=== PATIENT | male | born 1985 | race Caucasian/White ===

== ENCOUNTER 2019-02-26 16:16 | Emergency (ER) | payer OTHER | END 2019-02-26 18:28 | disposition other institution (70) | LOC: ED 16:16 | DX: Z02.89 Encounter for other administrative examinations (principal) ==

== ENCOUNTER 2019-02-26 16:16 | Emergency (ER) | payer SELFPAY ==
[~2019-02-26] VITALS: Ht 182.9 cm; Wt 97.5 kg
[2019-02-26 16:31] VITALS: Ht 182.9 cm; Wt 97.5 kg
[2019-02-26 18:28] VITALS: BP 97/66
== END 2019-02-26 18:28 | disposition other institution (70) ==
LOC: ED 16:16
DX: S42.002A Fracture of unspecified part of left clavicle, initial encounter for closed fracture (principal); W22.8XXA Striking against or struck by other objects, initial encounter; Y93.89 Activity, other specified; Y92.89 Other specified places as the place of occurrence of the external cause; Y99.8 Other external cause status
CPT/HCPCS: 90715; J1885; Q0092

== ENCOUNTER 2019-03-15 02:24 | Emergency (ER) | payer SELFPAY ==
[~2019-03-15] VITALS: Ht 180.3 cm; Wt 90.7 kg
[2019-03-15 02:31] VITALS: Ht 180.3 cm; Wt 90.7 kg
[2019-03-15 04:16] VITALS: BP 115/67
== END 2019-03-15 04:16 | disposition other institution (70) ==
LOC: ED 02:24
DX: S42.002A Fracture of unspecified part of left clavicle, initial encounter for closed fracture (principal); X58.XXXA Exposure to other specified factors, initial encounter; Y93.89 Activity, other specified; Y92.89 Other specified places as the place of occurrence of the external cause; Y99.8 Other external cause status
CPT/HCPCS: Q0092

== ENCOUNTER 2019-03-15 02:24 | Emergency (ER) | payer OTHER | END 2019-03-15 04:16 | disposition other institution (70) | LOC: ED 02:24 | DX: Z02.89 Encounter for other administrative examinations (principal) ==